=== PATIENT | female | born 1970 | race Caucasian/White ===

== ENCOUNTER 2020-10-20 06:48 | Emergency (ER) | payer OTHER ==
[2020-10-20 08:10] LABS: #Basophils 0.1 10x3/uL (0.0-0.2); #Eosinphils 0.2 10x3/uL (0.0-0.5); %Basophils 0.5 % (0.0-2.0); %Eosinophils 1.8 % (0.0-6.0); %Lymphocytes 9.4 % (18.0-47.0); %Monocytes 9.7 % (0.0-10.0); Hemoglobin 11.9 g/dL (12.0-15.5); Mean Corpuscular HGB CONC 32.4 g/dL (32.0-36.0); Mean Corpuscular Hemoglobin 28.7 pg (27.0-33.0); Mean Corpuscular Volume 88.6 fl (81.6-98.3); Mean Platelet Volume 9.8 fl (7.4-10.4); Platelet Count 292 10x3/uL (150-450); RBC Distribution Width 13.8 % (11.5-14.5); Red Blood Cell (RBC) Count 4.14 10x6/uL (3.90-5.03); White Blood Cell (WBC) Count 10.3 10x3/uL (3.5-10.5)
[2020-10-20 08:18] LABS: ALT (SGPT) 18 U/L (8-55); AST (SGOT) 24 U/L (5-34); Alkaline Phosphatase 92 U/L (40-110); Anion Gap 17 mmol/L (10-20); BUN (Urea Nitrogen) 9 mg/dL (7.0-18.7); Bilirubin, Total 0.4 mg/dL (0.2-1.2); Calc. Creatinine Clearance 0 mL/min (70-130); Calcium 9.4 mg/dL (7.8-10.44); Carbon Dioxide 21 mmol/L (22-29); Chloride 106 mmol/L (98-107); Globulin 3.1 g/dL (2.4-3.5); Glucose 85 mg/dL (70-105); Potassium 3.8 mmol/L (3.5-5.1); Protein, Total 7.1 g/dL (6.0-8.3); Sodium 140 mmol/L (136-145)
== END 2020-10-20 09:10 | disposition home or self-care (01) ==
LOC: CSHERS 06:48
DX: J18.9 Pneumonia, unspecified organism (principal); J18.0 Bronchopneumonia, unspecified organism
CPT/HCPCS: 36415; 71275; 80053; 84484; 85025; 93005

== ENCOUNTER 2022-12-08 09:20 | Outpatient (CLI) | payer OTHER ==
[~2022-12-08 09:20] MED LIST: Iopamidol 300 61% 100 ML VIAL FS ONE
== END 2022-12-08 09:21 | disposition home or self-care (01) ==
LOC: CSHCT 09:20
PROVIDERS: ATTEND Surgery
DX: K43.2 Incisional hernia without obstruction or gangrene (principal); K42.9 Umbilical hernia without obstruction or gangrene; Z90.5 Acquired absence of kidney; N85.2 Hypertrophy of uterus; N85.8 Other specified noninflammatory disorders of uterus
CPT/HCPCS: 74177

== ENCOUNTER 2023-01-12 11:03 | Outpatient (CLI) | payer OTHER | END 2023-01-12 11:04 | disposition home or self-care (01) | LOC: CSHLAB 11:03 | PROVIDERS: ATTEND Surgery | DX: Z01.818 Encounter for other preprocedural examination (principal) | CPT/HCPCS: 93005; 93010 ==

== ENCOUNTER 2023-01-15 05:37 | Day surgery (SDC) | payer OTHER ==
[2023-01-12 12:33] VITALS: BMI 23.1
[2023-01-15] MEDS ORDERED: Ondansetron PF 4 MG/2 ML Vial ONE (06:27)
[2023-01-15] MEDS ORDERED: Rocuronium Bromide 10 MG/ML (10ML VIAL) ONE (06:27)
[2023-01-15] MEDS ORDERED: Dexamethasone 20 MG/5 ML VIAL ONE (06:27)
[2023-01-15] MEDS ORDERED: PROPOFOL 20 ML ONE (06:27)
[2023-01-15] MEDS ORDERED: Midazolam HCl 2 mg/2 ml Vial ONE (06:28)
[2023-01-15] MEDS ORDERED: Fentanyl 250 MCG/5 ML VIAL ONE (06:28)
[2023-01-15] MEDS ORDERED: Glycopyrrolate 0.2 MG/ML 5 ML SYRINGE ONE (06:28)
[2023-01-15] MEDS ORDERED: Ketorolac Tromethamine 30 MG/ML VIAL ONE (06:28)
[2023-01-15] MEDS ORDERED: EPINEPHrine 1 MG/ML VIAL ONE (06:33)
[2023-01-15] MEDS ORDERED: Bupivacaine PF 0.5% 30 ML VIAL ONE (06:34)
[2023-01-15] MEDS ORDERED: Dexmedetomidine 200 MCG/2 ML VIAL ONE (06:52)
[2023-01-15] MEDS ORDERED: SUGAMMADEX SODIUM 200 MG/2 ML VIAL ONE (06:52)
[2023-01-15] MEDS ORDERED: CEFAZOLIN 2 GM VIAL ONE (07:19)
[2023-01-15] MEDS ORDERED: traMADol HCl 50 MG TAB PO PRN (08:29)
== END 2023-01-15 09:09 | disposition home or self-care (01) ==
LOC: CSHSDC 05:37
PROVIDERS: ATTEND Surgery
PROC: 0WQF0ZZ Repair Abdominal Wall, Open Approach (ICD-10-PCS; principal; 2023-01-15)
DX: K43.2 Incisional hernia without obstruction or gangrene (principal); Z88.6 Allergy status to analgesic agent
CPT/HCPCS: J0171; J1100; J1885; J2250; J2405; J2704; J3010; S0020